=== PATIENT | female | born 1930 | race Caucasian/White ===

== ENCOUNTER → 2016-12-14 | Outpatient (CLI) | payer MEDICARE, BC ==
[~2016-12-14] MED LIST: ASPIRIN ADULT L81 M2 PO; ASPIRIN FOR CHI81 MG PO; DOMPERIDONE1 POW PO; LISINOPRIL 10MG10 MG PO; MEDROL 4MG. DOSE4 MG PO; SIMVASTATIN40 MG PO
== END ==
LOC: LAB 12:12
DX: J44.1 Chronic obstructive pulmonary disease with (acute) exacerbation (principal)